=== PATIENT | male | born 1955 | race Caucasian/White ===

== ENCOUNTER 2019-09-05 07:03 | Inpatient (IN) | payer BC ==
[2019-09-04 16:57] LABS: BASOPHILS # (AUTO) 0.1 X10'3 (0-0.2); BASOPHILS % (AUTO) 0.7 % (0-1); EOSINOPHILS # (AUTO) 0.1 X10'3 (0-0.9); HEMATOCRIT 44.4 % (42.0-52.0); HEMOGLOBIN 14.9 g/dl (14.0-17.9); LYMPHOCYTES # (AUTO) 3.1 X10'3 (1.1-4.8); MEAN CORPUSCULAR HEMOGLOBIN 29.5 PG (27.0-31.0); MEAN CORPUSCULAR HGB CONC 33.5 g/dL (33.0-36.5); MEAN PLATELET VOLUME 8.2 FL (7.4-10.4); MONOCYTES # (AUTO) 0.7 X10'3 (0-0.9); MONOCYTES % (AUTO) 7.4 % (2-12); NEUTROPHILS % (AUTO) 55.9 % (42-75); PLATELET COUNT 307 X10'3 (140-440); RED BLOOD COUNT 5.04 X10'6 (4.70-6.10); RED CELL DISTRIBUTION WIDTH 14.8 % (11.5-14.5); WHITE BLOOD COUNT 8.9 X10'3 (4.5-11.0)
[2019-09-04 17:08] LABS: ALBUMIN 4.1 G/DL (3.4-5.0); ANION GAP 9 (8-16); BLOOD UREA NITROGEN 20 MG/DL (7-18); BUN/CREATININE RATIO 24.4 (5.4-32.0); CALCIUM 9.2 MG/DL (8.5-10.1); CHLORIDE 102 MMOL/L (99-107); CREATININE 0.82 MG/DL (0.60-1.10); GLUCOSE 127 MG/DL (70-104); POTASSIUM 4.3 MMOL/L (3.5-5.1); SODIUM 138 MMOL/L (135-145); TOTAL CARBON DIOXIDE 26.7 MMOL/L (24-32); eGFR > 90 ML/MIN
[2019-09-04 18:10] LABS: PARTIAL THROMBOPLASTIN TIME 30 SECONDS (22-32)
[2019-09-05] VITALS (12 sets, daily range): BP systolic 99–134; BP diastolic 65–78
[~2019-09-05] VITALS: Ht 182.9 cm; Wt 93.2 kg
[2019-09-05] MEDS ORDERED: LORazepam 0.5 MG tablet PO PRN (07:20)
[2019-09-05] MEDS ORDERED: diphenhydrAMINE 25mg capsule PO PRN (07:20)
[2019-09-05] MEDS ORDERED: TRAZ-251 PO (08:32)
[2019-09-05] MEDS ORDERED: LEVO75TA PO (08:32)
[2019-09-05] MEDS ORDERED: CHOL500050 PO (08:32)
[2019-09-05] MEDS ORDERED: EVOL140P SUBCUT (08:32)
[2019-09-05] MEDS ORDERED: ASPI-1265 PO (08:32)
[2019-09-05] MEDS ORDERED: SITA1TAB6 PO (08:32)
[2019-09-05] MEDS ORDERED: PIOG15TA8 PO (08:32)
[2019-09-05] MEDS ORDERED: HYDR-4353 PO (08:32)
[2019-09-05] MEDS ORDERED: LISI-600 PO (08:32)
[2019-09-05] MEDS ORDERED: LIDOcaine/PRILOcaine 5gm cream TP ONE (08:35)
[2019-09-05] MEDS ORDERED: midazolam 2 mg/2 ml injection ONE ×2 (09:49→10:17)
[2019-09-05] MEDS ORDERED: verapamil 2.5 mg/ml inj IV ONE (09:49)
[2019-09-05] MEDS ORDERED: nitroGLYCERIN-Tridil 50MG/D5W 250 ML IV ONE (09:49)
[2019-09-05] MEDS ORDERED: fentaNYL/PF 50MCG/1 ML 2ML syringe ONE (09:50)
[2019-09-05] MEDS ORDERED: LIDOcaine 1% 30ml preserv. free vial ONE (09:50)
[2019-09-05] MEDS ORDERED: heparin 1,000unit/ml 10ml vial 10 ML ONE (09:50)
[2019-09-05] MEDS ORDERED: iohexol 350MG/ML 100ml bottle IV ONE (09:50)
[2019-09-05] MEDS ORDERED: iohexol 350 MG/ML 50ML vial IV ONE (09:50)
[2019-09-05] MEDS ORDERED: iohexol 350 MG/1 ML 200ml bottle ONE (10:20)
[2019-09-05] MEDS: normal saline 1000ml 1,000 ML IV SCH ×3 (11:10→21:07)
[2019-09-05] MEDS ORDERED: OXAZEpam 15mg capsule PO PRN (11:55)
[2019-09-05] MEDS ORDERED: dextrose ORAL solution 15 GM/59 ML bottle PO PRN ×2 (12:10)
[2019-09-05] MEDS ORDERED: dextrose 50%-water 50ml dispensing syringe IV PRN ×2 (12:10)
[2019-09-05] MEDS ORDERED: MESSAGE TO PHARMACY PO ONE (12:10)
[2019-09-05] MEDS ORDERED: insulin Lispro (HumaLOG) vial - multi-dose SQ SCH (12:10)
[2019-09-05] MEDS ORDERED: glucagon, human recombinant 1mg kit SUBCUT PRN (12:10)
--- NOTE | 2019-09-05 14:10 | NUR ---
Problems reprioritized. Patient report given, questions answered & plan of care reviewed with Avani RN, I will be taking pt to rm#[id number] shortly.
--- NOTE | 2019-09-05 15:00 | NUR ---
VSS, pt is in stable condition, pt is in rm#[id number], pt's R hand radial site dsg CDI, introduced pt to RN, Avani, pt is in no distress at this time.
[2019-09-05 15:50] LABS: HEMOGLOBIN A1C 6.6 % (4.5-6.2)
[2019-09-05] MEDS: HYDROcodone/acetaminophen 10/325mg tab PO PRN ×2 (16:13→22:40)
--- NOTE | 2019-09-05 18:48 | NUR ---
Problems reprioritized. Patient report given, questions answered & plan of care reviewed with BENNIE Olson. Patient transferred to ACCE unit via wheelchair, able to transfer self to bed, no acute distress, stable at shift change.
[2019-09-05] MEDS ORDERED: traZODone 50mg tablet PO SCH (21:00)
[2019-09-05] MEDS ORDERED: insulin glargine (Lantus) pen - multi-dose SQ SCH (21:00)
--- NOTE | 2019-09-05 22:52 | NUR ---
ADMIT ORDER AND CODE STATUS PUT IN UNDER WRITTEN ORDERS IN PAPER CHART FROM DR. HAQUE.
[2019-09-06] VITALS (10 sets, daily range): BP systolic 113–144; BP diastolic 60–85
[2019-09-06] MEDS: normal saline 1000ml 1,000 ML IV SCH ×4 (02:43→15:15)
[2019-09-06 04:56] LABS: ALBUMIN 3.1 G/DL (3.4-5.0); ANION GAP 12 (8-16); BLOOD UREA NITROGEN 16 MG/DL (7-18); BUN/CREATININE RATIO 20.3 (5.4-32.0); CALCIUM 8.1 MG/DL (8.5-10.1); CHLORIDE 109 MMOL/L (99-107); CREATININE 0.79 MG/DL (0.60-1.10); GLUCOSE 106 MG/DL (70-104); SODIUM 145 MMOL/L (135-145); TOTAL CARBON DIOXIDE 24.5 MMOL/L (24-32); eGFR > 90 ML/MIN
[2019-09-06 05:01] LABS: BASOPHILS % (AUTO) 0.4 % (0-1); EOSINOPHILS # (AUTO) 0.2 X10'3 (0-0.9); EOSINOPHILS % (AUTO) 2.5 % (0-6); HEMOGLOBIN 13.5 g/dl (14.0-17.9); LYMPHOCYTES # (AUTO) 3.7 X10'3 (1.1-4.8); LYMPHOCYTES % (AUTO) 48.1 % (21-51); MEAN CORPUSCULAR HEMOGLOBIN 29.6 PG (27.0-31.0); MEAN CORPUSCULAR HGB CONC 33.8 g/dL (33.0-36.5); MEAN CORPUSCULAR VOLUME 87.6 FL (78-98); MEAN PLATELET VOLUME 8.1 FL (7.4-10.4); MONOCYTES # (AUTO) 0.5 X10'3 (0-0.9); MONOCYTES % (AUTO) 6.8 % (2-12); NEUTROPHILS # (AUTO) 3.2 X10'3 (1.8-7.7); NEUTROPHILS % (AUTO) 42.2 % (42-75); PLATELET COUNT 250 X10'3 (140-440); RED BLOOD COUNT 4.57 X10'6 (4.70-6.10); RED CELL DISTRIBUTION WIDTH 14.1 % (11.5-14.5); WHITE BLOOD COUNT 7.6 X10'3 (4.5-11.0)
--- NOTE | 2019-09-06 06:10 | NUR ---
Patient in room MED 310. I have received report from BENNIE Longoria and had the opportunity to ask questions and assume patient care.
--- NOTE | 2019-09-06 06:25 | NUR ---
Problems reprioritized. Patient report given, Amelia AVERY questions answered & plan of care reviewed with .Bedside report completed. pt resting quielty, no distress noted.
[2019-09-06] MEDS ORDERED: levoTHYROXINE 75mcg tablet PO SCH (07:00)
--- NOTE | 2019-09-06 07:39 | NUR ---
Patient blood sugar 139, NPO. Patient refuses the correctional dose of 1 unit of insulin. Controls at home with diet and oral medications.
[2019-09-06] MEDS ORDERED: vitamin D (cholecalciferol) 1,000 unit tablet PO SCH (08:00)
[2019-09-06] MEDS ORDERED: lisinopril 10 MG tablet PO SCH (08:00)
[2019-09-06] MEDS ORDERED: pioglitazone 15mg tablet PO SCH (08:00)
[2019-09-06] MEDS ORDERED: aspirin 81mg tab.chew PO SCH (08:00)
[2019-09-06 08:46] LABS: MAGNESIUM 1.8 MG/DL (1.5-2.4); PHOSPHORUS 3.2 MG/DL (2.3-4.5)
[2019-09-06] MEDS ORDERED: LIDOcaine/PRILOcaine 5gm cream TP ONE (09:55)
[2019-09-06] MEDS ORDERED: SITA1TBM4 PO (10:00)
[2019-09-06] MEDS ORDERED: verapamil 2.5 mg/ml inj IV ONE (10:33)
[2019-09-06] MEDS ORDERED: fentaNYL/PF 50MCG/1 ML 2ML syringe ONE (10:33)
[2019-09-06] MEDS ORDERED: midazolam 2 mg/2 ml injection ONE ×2 (10:33→11:48)
[2019-09-06] MEDS ORDERED: nitroGLYCERIN-Tridil 50MG/D5W 250 ML IV ONE (10:33)
[2019-09-06] MEDS ORDERED: LIDOcaine 1% (10mg/ml)w/preservative injection 20ml MDV ONE (10:33)
[2019-09-06] MEDS ORDERED: iohexol 350 MG/1 ML 200ml bottle ONE ×2 (10:34→12:11)
[2019-09-06] MEDS ORDERED: heparin 1,000unit/ml 10ml vial 10 ML ONE ×2 (10:34→13:04)
--- NOTE | 2019-09-06 10:51 | NUR ---
Patient has been transported to [facility] for procedure by BENNIE Suresh from [facility].
[2019-09-06] MEDS ORDERED: heparin 25,000 UNIT/250ml bag 250 ML IV ONE (11:17)
[2019-09-06] MEDS ORDERED: HYDROmorphone 1 mg/ml syringe ONE (11:40)
[2019-09-06] MEDS ORDERED: heparin 1,000 UNITS/NS 500ml 500 ML ONE (12:12)
[2019-09-06] MEDS ORDERED: clopidogrel 300mg tablet ONE (13:13)
--- NOTE | 2019-09-06 13:22 | NUR ---
received report from Unruly,cath lab radiological technologist RN
[2019-09-06] MEDS ORDERED: magnesium hydroxide 30ml (MOM) UD suspension PO PRN (14:10)
[2019-09-06] MEDS ORDERED: cyclobenzaprine 10mg tablet PO PRN (14:10)
[2019-09-06] MEDS ORDERED: acetaminophen 325mg tablet PO PRN (14:10)
[2019-09-06] MEDS ORDERED: HYDROcodone/acetaminophen 10/325mg tab PO PRN ×2 (14:10)
[2019-09-06] MEDS ORDERED: DAPA10TA PO (15:24)
[2019-09-06] MEDS ORDERED: CLOP75TA35 PO (17:28)
[2019-09-06] MEDS ORDERED: ASPI-1265 PO (17:28)
--- NOTE | 2019-09-06 18:01 | NUR ---
Problems reprioritized. Patient report given, questions answered & plan of care reviewed with BENNIE Domínguez.
--- NOTE | 2019-09-06 18:53 | NUR ---
Patient in room MED 310. I have received report from Glory AVERY and had the opportunity to ask questions and assume patient care.
[2019-09-06] MEDS ORDERED: docusate sod 100mg capsule PO SCH (20:00)
--- NOTE | 2019-09-06 20:15 | NUR ---
RN provided patient teaching to patient and spouse on post cath care, DM survival skills, and cardiovascular disease progress. RN also provided education on medications, and diabetic appropriate diet. Pt and spouse's questions were answered. Pt were instructed to picker and sorter load and unload Rx from [facility] on [address] instead of [facility] since [facility] has longer pharmacy hours. Pt D/C on 09/06 at 20:15 with , ambulate by self, gait normal, all personal belongings were taken from room.
[2019-09-07] MEDS ORDERED: aspirin 81mg tab.chew PO ONE (08:00)
[2019-09-07] MEDS ORDERED: clopidogrel 75mg tablet PO SCH (08:00)
[2019-09-07] MEDS ORDERED: aspirin 325mg tablet PO SCH (08:00)
== END 2019-09-06 20:15 | disposition home or self-care (01) | DRG 247 ==
LOC: SSTAY O 07:03 → PCU 3S 15:09 → SSTAY O 19:33 → MED 3N 19:34
PROVIDERS: ADMIT Internal Medicine Cardiovascular Disease; ATTEND Internal Medicine Cardiovascular Disease
PROC: 4A023N7 Measurement of Cardiac Sampling and Pressure, Left Heart, Percutaneous Approach (ICD-10-PCS; principal; 2019-09-05)
PROC: B2111ZZ Fluoroscopy of Multiple Coronary Arteries using Low Osmolar Contrast (ICD-10-PCS; 2019-09-05)
PROC: B2151ZZ Fluoroscopy of Left Heart using Low Osmolar Contrast (ICD-10-PCS; 2019-09-05)
PROC: 027236Z Dilation of Coronary Artery, Three Arteries with Three Drug-eluting Intraluminal Devices, Percutaneous Approach (ICD-10-PCS; 2019-09-06)
PROC: 02JA3ZZ Inspection of Heart, Percutaneous Approach (ICD-10-PCS; 2019-09-06)
DX: I25.119 Atherosclerotic heart disease of native coronary artery with unspecified angina pectoris (principal); E11.9 Type 2 diabetes mellitus without complications; I10 Essential (primary) hypertension; E78.5 Hyperlipidemia, unspecified; E66.9 Obesity, unspecified; Z68.27 Body mass index [BMI] 27.0-27.9, adult
CPT/HCPCS: 36415; 80048; 82948; 83036; 83735; 84100; 84443; 85025; 85347; 85610; 85730; 87081; 93005; 93458; 99152; 99153; A4620; C1725; C1769; C1874; C1894; C9600; C9601; C9607; G0378; J1170; J1644; J1815; J2001; J2250; J3010; J3490; J7030; Q0163; Q9967

== ENCOUNTER 2021-11-29 10:01 | Inpatient (IN) | payer OTHER, SELFPAY ==
[~2021-11-29] VITALS: Ht 182.9 cm; Wt 81.0 kg
[~2021-11-29 10:01] MED LIST: ASPI-1265 PO; CHOL500050 PO; CLOP75TA34 PO; DAPA10TA PO; EVOL140P3 SUBCUT; HYDR-4353 PO; LEVO75TA PO; LISI20TA28 PO; PIOG15TA8 PO; SITA1TBM4 PO; TRAZ-251 PO
[2021-11-29 11:31] LABS: ALANINE AMINOTRANSFERASE 26 U/L (12-78); ALBUMIN 2.9 G/DL (3.4-5.0); ALBUMIN/GLOBULIN RATIO 0.6 (1.1-1.5); ALKALINE PHOSPHATASE 65 IU/L (46-116); ANION GAP 18 (8-16); ASPARTATE AMINO TRANSFERASE 14 U/L (10-37); BILIRUBIN,TOTAL 0.7 MG/DL (0.1-1.0); BLOOD UREA NITROGEN 52 MG/DL (7-18); BUN/CREATININE RATIO 47.7 (5.4-32.0); CALCIUM 9.6 MG/DL (8.5-10.1); CHLORIDE 97 MMOL/L (99-107); CREATININE 1.09 MG/DL (0.60-1.10); GLUCOSE 299 MG/DL (70-104); MAGNESIUM 2.9 MG/DL (1.5-2.4); POTASSIUM 4.4 MMOL/L (3.5-5.1); SODIUM 132 MMOL/L (135-145); TOTAL CARBON DIOXIDE 16.6 MMOL/L (24-32); TOTAL PROTEIN 7.6 G/DL (6.4-8.2); eGFR 68 ML/MIN
[2021-11-29 11:35] LABS: D-DIMER 0.24 MG/L FEU (0-0.50)
[2021-11-29 11:40] LABS: BASOPHILS % (AUTO) 0.1 % (0-1); EOSINOPHILS % (AUTO) 0 % (0-6); HEMATOCRIT 46.4 % (42.0-52.0); HEMOGLOBIN 15.6 g/dl (14.0-17.9); LYMPHOCYTES % (AUTO) 6.6 % (21-51); MEAN CORPUSCULAR HEMOGLOBIN 29.8 PG (27.0-31.0); MEAN CORPUSCULAR HGB CONC 33.7 g/dL (33.0-36.5); MEAN CORPUSCULAR VOLUME 88.3 FL (78-98); MEAN PLATELET VOLUME 8.3 FL (7.4-10.4); MONOCYTES # (AUTO) 1.3 X10'3 (0-0.9); MONOCYTES % (AUTO) 8.5 % (2-12); NEUTROPHILS # (AUTO) 13.3 X10'3 (1.8-7.7); NEUTROPHILS % (AUTO) 84.8 % (42-75); PLATELET COUNT 477 X10'3 (140-440); RED BLOOD COUNT 5.25 X10'6 (4.70-6.10); RED CELL DISTRIBUTION WIDTH 14.6 % (11.5-14.5); WHITE BLOOD COUNT 15.7 X10'3 (4.5-11.0)
[2021-11-29] MEDS ORDERED: REMDESIVIR INJ 200 MG in normal saline 100ml IV soln 60 ML IV ONE (12:10)
[2021-11-29] MEDS ORDERED: dexamethasone inj 8 MG in dextrose 5%-water 100 ML IV SCH (12:12)
[2021-11-29] MEDS ORDERED: potassium Cl 20 mEq SR tablet PO PRN ×2 (12:40)
[2021-11-29] MEDS ORDERED: PERFLUTREN PROTEIN-A MICROSPHR (Optison) 0.22 MG/ML 3ML VIAL IV ONE (12:40)
[2021-11-29] MEDS ORDERED: magnesium 4gm in 100ml NS 100 ML IV PRN (12:40)
[2021-11-29] MEDS ORDERED: ondansetron 4mg rapidly disintigrating tab PO PRN (12:40)
[2021-11-29] MEDS ORDERED: magnesium Cl slow-release 64mg tablet PO PRN (12:40)
[2021-11-29] MEDS ORDERED: mag hydrox/Alum hydrox/simeth 30ml oral suspension PO PRN (12:40)
[2021-11-29] MEDS ORDERED: magnesium 2GM in 50ml NS 50 ML IV PRN (12:40)
[2021-11-29] MEDS ORDERED: HYDROcodone/acetaminophen 5mg/325mg tablet PO PRN (12:40)
[2021-11-29] MEDS ORDERED: acetaminophen 325mg tablet PO PRN (12:40)
[2021-11-29] MEDS ORDERED: dextrose ORAL solution 15 GM/59 ML bottle PO PRN ×2 (12:40)
[2021-11-29] MEDS ORDERED: bisacodyl 10mg suppository rectal RC PRN (12:40)
[2021-11-29] MEDS ORDERED: glucagon, human recombinant 1mg kit SUBCUT PRN (12:40)
[2021-11-29] MEDS ORDERED: ALBUTEROL INHALER 1 PUFF/90 MCG INHALER IH PRN (12:40)
[2021-11-29] MEDS ORDERED: MESSAGE TO PHARMACY PO ONE (12:40)
[2021-11-29] MEDS ORDERED: ondansetron/PF 4mg/2ml inj IV PRN (12:40)
[2021-11-29] MEDS ORDERED: acetaminophen 650mg rectal suppository RC PRN (12:40)
[2021-11-29] MEDS ORDERED: magnesium hydroxide 30ml (MOM) UD suspension PO PRN (12:40)
[2021-11-29] MEDS ORDERED: HYDROcodone/acetaminophen 10/325mg tab PO PRN (12:40)
[2021-11-29] MEDS ORDERED: potassium CL 10mEq/100ml bag 100 ML IV PRN (12:40)
[2021-11-29] MEDS ORDERED: dextrose 50%-water 50ml dispensing syringe IV PRN ×2 (12:40)
[2021-11-29] MEDS ORDERED: iohexol 350MG/ML 100ml bottle IV ONE (12:54)
[2021-11-29] MEDS ORDERED: CLOP75TA33 PO (13:00)
[2021-11-29] MEDS ORDERED: LEVO75TA7 PO (13:00)
[2021-11-29] MEDS ORDERED: METF-438 PO (13:00)
[2021-11-29] MEDS ORDERED: TIZA-205 PO (13:00)
[2021-11-29] MEDS ORDERED: EZET10TA48 PO (13:00)
[2021-11-29] MEDS ORDERED: GABA-530 PO (13:00)
[2021-11-29] MEDS ORDERED: LISI10TA27 PO (13:00)
[2021-11-29] MEDS ORDERED: PIOG30TA71 PO (13:00)
[2021-11-29] MEDS ORDERED: REMDESIVIR 200 MG in NS 100ml IVPB Loading dose IV ONE (13:45)
[2021-11-29 14:47] LABS: HEMOGLOBIN A1C 7.6 % (4.5-6.2)
[2021-11-29] MEDS: normal saline 1000ml 1,000 ML IV SCH ×2 (14:57→22:40)
[2021-11-29 15:20] LABS: FERRITIN 3315 NG/ML (26-388); LACTATE DEHYDROGENASE 336 U/L (85-227)
[2021-11-29] MEDS: ALBUTEROL INHALER 1 PUFF/90 MCG INHALER IH SCH ×2 (16:41→21:44)
--- NOTE | 2021-11-29 17:00 | NUR ---
PT MOVED ONTO A HOSPITAL BED. STATES HE MAY WANT TO LEAVE AMA AND GO HOME. INFORMED HE IS CURRENTLY ON 5L OXYGEN TO MAINTAIN HIS OXYGEN LEVEL TO A NORMAL RANGE. PT STATES HE KNOWS BUT MIGHT WANT TO GO HOME IF WE DONT DO ANY MORE TESTS. STATES CHECK WITH HIM LATER
--- NOTE | 2021-11-29 19:53 | NUR ---
PT NS WAS REINITIATED AND EDUCATED ON KEEPING ARM STRAIGHT FOR IV INFUSION TO BE SUCCESSFUL.
[2021-11-29] MEDS: docusate sod 100mg capsule PO SCH (20:00)
[2021-11-29] MEDS: K and/or MAG REPLACEMENT MC SCH (20:00)
[2021-11-29] MEDS: enoxaparin 40mg/0.4ml syringe SUBCUT SCH (20:19)
[2021-11-29] MEDS: dexamethasone inj 6 MG in dextrose 5%-water 100 ML IV SCH (20:19)
[2021-11-29] MEDS: tizanidine 4mg tablet PO SCH (20:20)
[2021-11-29] MEDS: traZODone 50mg tablet PO SCH (20:20)
[2021-11-29] MEDS: gabapentin 100mg capsule PO SCH (20:20)
[2021-11-29] MEDS: insulin glargine (Lantus) pen - multi-dose SQ SCH (21:00)
[2021-11-29 21:32] LABS: CLARITY,URINE CLEAR (Clear); COLOR,URINE YELLOW (Yellow); GLUCOSE, URINE >=1000 mg/dl (Neg); KETONES,URINE 40 mg/dl (Neg); LEUKOCYTE ESTERASE ,URINE NEGATIVE (Neg); NITRITES, URINE NEGATIVE (Neg); OCCULT BLOOD,URINE NEGATIVE (Neg); PROTEIN,URINE NEGATIVE (Neg); UROBILINOGEN,URINE 0.2 E.U/dL (0.2-1.0)
[2021-11-29 21:46] LABS: UA COLLECTION TYPE STRAIGHT CATH
[2021-11-29 21:48] LABS: BACTERIA,URINE NONE SEEN /HPF (Neg); RBC,URINE NONE SEEN /HPF (0-2); SQUAMOUS EPITHELIAL CELL,UR FEW /LPF (FEW); WBC,URINE NONE SEEN /HPF (0-4)
[2021-11-30] MEDS: ALBUTEROL INHALER 1 PUFF/90 MCG INHALER IH SCH ×4 (02:00→22:00)
--- NOTE | 2021-11-30 02:00 | NUR ---
PAGED RESPIRATORY FOR PT EXHIBITING DECREASED OXYGENATION--SATING AT 87 ON 5L NC.
[2021-11-30] MEDS: pioglitazone 15mg tablet PO SCH (08:00)
[2021-11-30] MEDS ORDERED: PIOGLITAZONE HCL PO SCH (08:00)
[2021-11-30] MEDS: K and/or MAG REPLACEMENT MC SCH ×2 (09:00→20:00)
[2021-11-30] MEDS: REMDESIVIR INJ 100 MG in normal saline 100ml IV soln 100 ML IV SCH (09:05)
[2021-11-30] MEDS: gabapentin 100mg capsule PO SCH ×3 (09:16→22:23)
[2021-11-30] MEDS: lisinopril 10 MG tablet PO SCH (09:17)
[2021-11-30] MEDS: ezetimibe 10mg tablet PO SCH (09:19)
[2021-11-30] MEDS: clopidogrel 75mg tablet PO SCH (09:19)
[2021-11-30] MEDS: docusate sod 100mg capsule PO SCH ×2 (09:20→20:00)
[2021-11-30] MEDS: levoTHYROXINE 75mcg tablet PO SCH (09:20)
[2021-11-30] MEDS: enoxaparin 40mg/0.4ml syringe SUBCUT SCH ×2 (09:21→22:23)
[2021-11-30] MEDS: normal saline 1000ml 1,000 ML IV SCH ×2 (09:24→22:21)
[2021-11-30] MEDS: DAPAGLIFLOZIN 10MG TABLET PO SCH (09:28)
[2021-11-30 09:42] LABS: BASOPHILS % (AUTO) 0.4 % (0-1); EOSINOPHILS % (AUTO) 0 % (0-6); HEMOGLOBIN 14.7 g/dl (14.0-17.9); LYMPHOCYTES # (AUTO) 1.3 X10'3 (1.1-4.8); MEAN CORPUSCULAR HEMOGLOBIN 29.7 PG (27.0-31.0); MEAN CORPUSCULAR HGB CONC 33.5 g/dL (33.0-36.5); MEAN CORPUSCULAR VOLUME 88.7 FL (78-98); MEAN PLATELET VOLUME 8.2 FL (7.4-10.4); MONOCYTES # (AUTO) 1.2 X10'3 (0-0.9); NEUTROPHILS # (AUTO) 9.2 X10'3 (1.8-7.7); NEUTROPHILS % (AUTO) 78.6 % (42-75); PLATELET COUNT 404 X10'3 (140-440); RED BLOOD COUNT 4.96 X10'6 (4.70-6.10); RED CELL DISTRIBUTION WIDTH 14.7 % (11.5-14.5); WHITE BLOOD COUNT 11.6 X10'3 (4.5-11.0)
[2021-11-30 09:50] LABS: D-DIMER < 0.19 MG/L FEU (0-0.50)
[2021-11-30] MEDS: dexamethasone inj 6 MG in dextrose 5%-water 100 ML IV SCH ×2 (09:50→22:21)
[2021-11-30 09:57] LABS: ALANINE AMINOTRANSFERASE 20 U/L (12-78); ALBUMIN 2.4 G/DL (3.4-5.0); ALBUMIN/GLOBULIN RATIO 0.6 (1.1-1.5); ALKALINE PHOSPHATASE 56 IU/L (46-116); ANION GAP 18 (8-16); ASPARTATE AMINO TRANSFERASE 15 U/L (10-37); BILIRUBIN,TOTAL 0.5 MG/DL (0.1-1.0); BLOOD UREA NITROGEN 57 MG/DL (7-18); BUN/CREATININE RATIO 63.3 (5.4-32.0); C-REACTIVE PROTEIN 3.37 MG/DL (0.0-0.5); CALCIUM 8.4 MG/DL (8.5-10.1); CHLORIDE 102 MMOL/L (99-107); CHOL/HDL RATIO 6.6 (0.00-4.99); CHOLESTEROL 206 MG/DL (0-200); GLUCOSE 251 MG/DL (70-104); HDL CHOLESTEROL 31 MG/DL (35-60); LACTATE DEHYDROGENASE 186 U/L (85-227); LDL CHOLESTEROL 114 MG/DL (50-100); MAGNESIUM 2.9 MG/DL (1.5-2.4); POTASSIUM 4.6 MMOL/L (3.5-5.1); SODIUM 137 MMOL/L (135-145); TOTAL CARBON DIOXIDE 17.2 MMOL/L (24-32); TOTAL PROTEIN 6.7 G/DL (6.4-8.2); TRIGLYCERIDES 404 MG/DL (20-135); eGFR 85 ML/MIN
[2021-11-30] MEDS: insulin Lispro (HumaLOG) vial - multi-dose SQ SCH ×4 (10:35→22:31)
[2021-11-30] MEDS ORDERED: temazepam 15mg capsule PO PRN (14:45)
[2021-11-30 20:30] VITALS: BP 118/59
[2021-11-30] MEDS: tizanidine 4mg tablet PO SCH (22:23)
[2021-11-30] MEDS: traZODone 50mg tablet PO SCH (22:23)
[2021-11-30] MEDS: temazepam 15mg capsule PO PRN (22:24)
[2021-11-30] MEDS: insulin glargine (Lantus) pen - multi-dose SQ SCH (22:30)
[2021-12-01 02:00] VITALS: BP 100/60
[2021-12-01] MEDS: ALBUTEROL INHALER 1 PUFF/90 MCG INHALER IH SCH ×5 (03:07→20:00)
[2021-12-01] MEDS: normal saline 1000ml 1,000 ML IV SCH ×2 (04:40→21:47)
[2021-12-01 06:00] VITALS: BP 111/66
--- NOTE | 2021-12-01 06:05 | NUR ---
received report from mariia mirza
[2021-12-01] MEDS ORDERED: REMDESIVIR INJ 100 MG in normal saline 100ml IV soln 80 ML IV SCH (08:00)
[2021-12-01] MEDS: K and/or MAG REPLACEMENT MC SCH ×2 (08:00→20:00)
[2021-12-01] MEDS: clopidogrel 75mg tablet PO SCH (08:09)
[2021-12-01] MEDS: levoTHYROXINE 75mcg tablet PO SCH (08:09)
[2021-12-01] MEDS: gabapentin 100mg capsule PO SCH ×3 (08:09→21:01)
[2021-12-01] MEDS: lisinopril 10 MG tablet PO SCH (08:09)
[2021-12-01] MEDS: ezetimibe 10mg tablet PO SCH (08:10)
[2021-12-01] MEDS: docusate sod 100mg capsule PO SCH ×2 (08:10→21:01)
[2021-12-01] MEDS: DAPAGLIFLOZIN 10MG TABLET PO SCH (08:10)
[2021-12-01] MEDS: pioglitazone 15mg tablet PO SCH (08:10)
[2021-12-01] MEDS: dexamethasone inj 6 MG in dextrose 5%-water 100 ML IV SCH ×2 (08:11→20:59)
[2021-12-01] MEDS: enoxaparin 40mg/0.4ml syringe SUBCUT SCH ×2 (08:14→21:03)
[2021-12-01 08:16] LABS: BASOPHILS % (AUTO) 0.5 % (0-1); EOSINOPHILS % (AUTO) 0 % (0-6); HEMATOCRIT 43.3 % (42.0-52.0); HEMOGLOBIN 14.7 g/dl (14.0-17.9); LYMPHOCYTES % (AUTO) 9.6 % (21-51); MEAN CORPUSCULAR HEMOGLOBIN 29.8 PG (27.0-31.0); MEAN CORPUSCULAR HGB CONC 33.8 g/dL (33.0-36.5); MEAN CORPUSCULAR VOLUME 88.2 FL (78-98); MEAN PLATELET VOLUME 8.3 FL (7.4-10.4); MONOCYTES # (AUTO) 0.8 X10'3 (0-0.9); MONOCYTES % (AUTO) 7.9 % (2-12); NEUTROPHILS # (AUTO) 8.3 X10'3 (1.8-7.7); PLATELET COUNT 367 X10'3 (140-440); RED BLOOD COUNT 4.91 X10'6 (4.70-6.10); RED CELL DISTRIBUTION WIDTH 14.6 % (11.5-14.5); WHITE BLOOD COUNT 10.1 X10'3 (4.5-11.0)
--- NOTE | 2021-12-01 08:23 | NUR ---
scanner on computer not scanning meds into [facility] at this time Addendum: 12/01/21 at 0823 by Marlena Webber RN checked all meds prior to admin
[2021-12-01 08:35] LABS: ALANINE AMINOTRANSFERASE 20 U/L (12-78); ALBUMIN 2.4 G/DL (3.4-5.0); ALBUMIN/GLOBULIN RATIO 0.6 (1.1-1.5); ALKALINE PHOSPHATASE 54 IU/L (46-116); ANION GAP 16 (8-16); ASPARTATE AMINO TRANSFERASE 13 U/L (10-37); BILIRUBIN,TOTAL 0.5 MG/DL (0.1-1.0); BLOOD UREA NITROGEN 45 MG/DL (7-18); BUN/CREATININE RATIO 59.2 (5.4-32.0); C-REACTIVE PROTEIN 1.91 MG/DL (0.0-0.5); CALCIUM 8.6 MG/DL (8.5-10.1); CHLORIDE 104 MMOL/L (99-107); CREATININE 0.76 MG/DL (0.60-1.10); GLUCOSE 209 MG/DL (70-104); LACTATE DEHYDROGENASE 213 U/L (85-227); MAGNESIUM 2.6 MG/DL (1.5-2.4); POTASSIUM 4.7 MMOL/L (3.5-5.1); SODIUM 138 MMOL/L (135-145); TOTAL CARBON DIOXIDE 18.5 MMOL/L (24-32); TOTAL PROTEIN 6.2 G/DL (6.4-8.2); eGFR > 90 ML/MIN
[2021-12-01] MEDS: insulin Lispro (HumaLOG) vial - multi-dose SQ SCH ×4 (08:50→20:56)
[2021-12-01] MEDS: REMDESIVIR INJ 100 MG in normal saline 100ml IV soln 100 ML IV SCH (08:54)
[2021-12-01 08:59] LABS: D-DIMER 0.23 MG/L FEU (0-0.50)
[2021-12-01 10:00] VITALS: BP 129/64
--- NOTE | 2021-12-01 12:30 | NUR ---
ADMIN AND EDUCATED PT ON USING HIS IS
--- NOTE | 2021-12-01 14:30 | NUR ---
DM Consult: Pt admit DX COVID-19 hx T2DM A1C 7.6 takes metformin at home per EMR. RD attempted to contact pt via TC but not successful. Written DM ed w/ RD contact information mailed to home address provided in EMR. Addendum: 12/01/21 at [address] Amended: Links added.
[2021-12-01 18:00] VITALS: BP 109/54
--- NOTE | 2021-12-01 18:04 | NUR ---
GAVE REPORT TO BENNIE CALDERA
[2021-12-01] MEDS: insulin glargine (Lantus) pen - multi-dose SQ SCH (20:54)
[2021-12-01] MEDS: temazepam 15mg capsule PO PRN (21:01)
[2021-12-01] MEDS: tizanidine 4mg tablet PO SCH (21:01)
[2021-12-01] MEDS: traZODone 50mg tablet PO SCH (21:01)
[2021-12-01 22:00] VITALS: BP 103/56
[2021-12-02 02:00] VITALS: BP 95/58
[2021-12-02] MEDS: ALBUTEROL INHALER 1 PUFF/90 MCG INHALER IH SCH ×4 (02:00→20:31)
--- NOTE | 2021-12-02 06:05 | NUR ---
received report from mariia morales
--- NOTE | 2021-12-02 06:50 | NUR ---
Problems reprioritized. Patient report given, questions answered & plan of care reviewed with mariia Johansen.
[2021-12-02 07:18] LABS: BASOPHILS % (AUTO) 0.1 % (0-1); EOSINOPHILS % (AUTO) 0 % (0-6); HEMATOCRIT 38.5 % (42.0-52.0); HEMOGLOBIN 13.2 g/dl (14.0-17.9); LYMPHOCYTES # (AUTO) 0.9 X10'3 (1.1-4.8); LYMPHOCYTES % (AUTO) 10.6 % (21-51); MEAN CORPUSCULAR HGB CONC 34.3 g/dL (33.0-36.5); MEAN CORPUSCULAR VOLUME 87.4 FL (78-98); MEAN PLATELET VOLUME 7.8 FL (7.4-10.4); MONOCYTES # (AUTO) 0.7 X10'3 (0-0.9); MONOCYTES % (AUTO) 7.7 % (2-12); NEUTROPHILS # (AUTO) 7.2 X10'3 (1.8-7.7); NEUTROPHILS % (AUTO) 81.6 % (42-75); PLATELET COUNT 336 X10'3 (140-440); RED BLOOD COUNT 4.41 X10'6 (4.70-6.10); RED CELL DISTRIBUTION WIDTH 14.7 % (11.5-14.5); WHITE BLOOD COUNT 8.9 X10'3 (4.5-11.0)
[2021-12-02 07:42] LABS: ALANINE AMINOTRANSFERASE 24 U/L (12-78); ALBUMIN 2.1 G/DL (3.4-5.0); ALBUMIN/GLOBULIN RATIO 0.6 (1.1-1.5); ALKALINE PHOSPHATASE 46 IU/L (46-116); ANION GAP 10 (8-16); ASPARTATE AMINO TRANSFERASE 19 U/L (10-37); BILIRUBIN,TOTAL 0.3 MG/DL (0.1-1.0); BLOOD UREA NITROGEN 35 MG/DL (7-18); BUN/CREATININE RATIO 58.3 (5.4-32.0); C-REACTIVE PROTEIN 0.86 MG/DL (0.0-0.5); CALCIUM 7.8 MG/DL (8.5-10.1); CHLORIDE 107 MMOL/L (99-107); GLUCOSE 177 MG/DL (70-104); LACTATE DEHYDROGENASE 167 U/L (85-227); MAGNESIUM 2.2 MG/DL (1.5-2.4); POTASSIUM 4.4 MMOL/L (3.5-5.1); SODIUM 137 MMOL/L (135-145); TOTAL CARBON DIOXIDE 19.8 MMOL/L (24-32); TOTAL PROTEIN 5.4 G/DL (6.4-8.2); eGFR > 90 ML/MIN
[2021-12-02] MEDS: K and/or MAG REPLACEMENT MC SCH ×2 (08:00→20:00)
[2021-12-02] MEDS: normal saline 1000ml 1,000 ML IV SCH ×3 (08:39→21:32)
[2021-12-02] MEDS: dexamethasone inj 6 MG in dextrose 5%-water 100 ML IV SCH ×2 (08:39→21:32)
[2021-12-02] MEDS: levoTHYROXINE 75mcg tablet PO SCH (08:41)
[2021-12-02] MEDS: gabapentin 100mg capsule PO SCH ×3 (08:41→21:31)
[2021-12-02] MEDS: clopidogrel 75mg tablet PO SCH (08:41)
[2021-12-02] MEDS: lisinopril 10 MG tablet PO SCH (08:41)
[2021-12-02] MEDS: ezetimibe 10mg tablet PO SCH (08:41)
[2021-12-02] MEDS: pioglitazone 15mg tablet PO SCH (08:42)
[2021-12-02] MEDS: DAPAGLIFLOZIN 10MG TABLET PO SCH (08:42)
[2021-12-02] MEDS: docusate sod 100mg capsule PO SCH ×2 (08:42→21:31)
[2021-12-02] MEDS: enoxaparin 40mg/0.4ml syringe SUBCUT SCH ×2 (08:43→21:31)
[2021-12-02] MEDS: insulin Lispro (HumaLOG) vial - multi-dose SQ SCH ×3 (08:52→23:00)
[2021-12-02] MEDS: REMDESIVIR INJ 100 MG in normal saline 100ml IV soln 100 ML IV SCH (10:30)
[2021-12-02 11:00] VITALS: BP 127/63
--- NOTE | 2021-12-02 18:51 | NUR ---
gave report to mariia hawthorne
[2021-12-02 19:00] VITALS: BP 105/64
[2021-12-02] MEDS: tizanidine 4mg tablet PO SCH (21:31)
[2021-12-02] MEDS: traZODone 50mg tablet PO SCH (21:31)
[2021-12-02 22:40] VITALS: BP 107/62
[2021-12-02] MEDS: insulin glargine (Lantus) pen - multi-dose SQ SCH (23:01)
[2021-12-03] MEDS: ALBUTEROL INHALER 1 PUFF/90 MCG INHALER IH SCH ×4 (02:00→19:54)
[2021-12-03 06:00] VITALS: BP 103/62
[2021-12-03] MEDS: normal saline 1000ml 1,000 ML IV SCH ×2 (06:40→16:40)
[2021-12-03 07:36] LABS: BASOPHILS % (AUTO) 0.1 % (0-1); EOSINOPHILS % (AUTO) 0 % (0-6); HEMATOCRIT 41.6 % (42.0-52.0); HEMOGLOBIN 14.1 g/dl (14.0-17.9); LYMPHOCYTES % (AUTO) 10.6 % (21-51); MEAN CORPUSCULAR HEMOGLOBIN 29.4 PG (27.0-31.0); MEAN CORPUSCULAR HGB CONC 33.8 g/dL (33.0-36.5); MEAN PLATELET VOLUME 7.9 FL (7.4-10.4); MONOCYTES # (AUTO) 0.5 X10'3 (0-0.9); MONOCYTES % (AUTO) 4.9 % (2-12); NEUTROPHILS # (AUTO) 7.9 X10'3 (1.8-7.7); NEUTROPHILS % (AUTO) 84.4 % (42-75); PLATELET COUNT 338 X10'3 (140-440); RED BLOOD COUNT 4.78 X10'6 (4.70-6.10); RED CELL DISTRIBUTION WIDTH 14.4 % (11.5-14.5); WHITE BLOOD COUNT 9.4 X10'3 (4.5-11.0)
[2021-12-03] MEDS: dexamethasone inj 6 MG in dextrose 5%-water 100 ML IV SCH ×2 (07:37→20:11)
[2021-12-03] MEDS: DAPAGLIFLOZIN 10MG TABLET PO SCH (07:41)
[2021-12-03] MEDS: ezetimibe 10mg tablet PO SCH (07:41)
[2021-12-03] MEDS: levoTHYROXINE 75mcg tablet PO SCH (07:41)
[2021-12-03] MEDS: docusate sod 100mg capsule PO SCH ×2 (07:42→20:11)
[2021-12-03] MEDS: gabapentin 100mg capsule PO SCH ×3 (07:42→20:11)
[2021-12-03] MEDS: clopidogrel 75mg tablet PO SCH (07:42)
[2021-12-03] MEDS: pioglitazone 15mg tablet PO SCH (07:42)
[2021-12-03] MEDS: enoxaparin 40mg/0.4ml syringe SUBCUT SCH ×2 (07:44→20:11)
[2021-12-03] MEDS: lisinopril 10 MG tablet PO SCH (08:00)
[2021-12-03] MEDS: K and/or MAG REPLACEMENT MC SCH ×2 (08:00→19:09)
[2021-12-03 08:01] LABS: ALANINE AMINOTRANSFERASE 38 U/L (12-78); ALBUMIN 2.2 G/DL (3.4-5.0); ALBUMIN/GLOBULIN RATIO 0.6 (1.1-1.5); ALKALINE PHOSPHATASE 48 IU/L (46-116); ANION GAP 10 (8-16); ASPARTATE AMINO TRANSFERASE 25 U/L (10-37); BILIRUBIN,TOTAL 0.4 MG/DL (0.1-1.0); BLOOD UREA NITROGEN 27 MG/DL (7-18); BUN/CREATININE RATIO 45.8 (5.4-32.0); C-REACTIVE PROTEIN 0.54 MG/DL (0.0-0.5); CALCIUM 7.8 MG/DL (8.5-10.1); CHLORIDE 105 MMOL/L (99-107); CREATININE 0.59 MG/DL (0.60-1.10); GLUCOSE 165 MG/DL (70-104); LACTATE DEHYDROGENASE 180 U/L (85-227); MAGNESIUM 2.1 MG/DL (1.5-2.4); POTASSIUM 4.2 MMOL/L (3.5-5.1); SODIUM 136 MMOL/L (135-145); TOTAL CARBON DIOXIDE 20.6 MMOL/L (24-32); TOTAL PROTEIN 5.6 G/DL (6.4-8.2); eGFR > 90 ML/MIN
[2021-12-03 08:33] LABS: D-DIMER 0.33 MG/L FEU (0-0.50)
[2021-12-03 10:00] VITALS: BP 96/50
[2021-12-03] MEDS: REMDESIVIR INJ 100 MG in normal saline 100ml IV soln 100 ML IV SCH (10:05)
[2021-12-03] MEDS: acetaminophen 325mg tablet PO PRN ×2 (12:10→20:48)
[2021-12-03 14:00] VITALS: BP 93/53
--- NOTE | 2021-12-03 14:49 | NUR ---
Initial: Pt admit DX COVID-19 pneumonitis, T2DM, hypothyroidism, and situational depression per EMR. Pt PO fluctuates w/ 100% breakfast this AM however overall ~46% avg heart healthy/carb controlled meals partially meeting estimated needs. Pt reports SOB despite decreasing oxygen needs per MD note now on 3L NC per EMR. LBM 11/29 receiving routine colace and PRN MoM this AM per EMR. Constipation and SOB likely impacting overall PO trends. Will monitor further PO intake trends given recent 100% this AM for further nutrition intervention needs this admit. Rec: 1. continue carb controlled/heart healthy diet per MD; encourage PO 2. monitor for ONS needs pending further PO trends 3. routine bowel care; 4 days constipation 4. scaled wt this admit; subsequent weekly wts Addendum: 12/03/21 at [address] Amended: Links added.
[2021-12-03] MEDS: insulin Lispro (HumaLOG) vial - multi-dose SQ SCH ×2 (15:25→20:21)
[2021-12-03 18:00] VITALS: BP 106/64
--- NOTE | 2021-12-03 18:23 | NUR ---
Problems reprioritized. Patient report given, questions answered & plan of care reviewed with BENNIE Stanton.
[2021-12-03] MEDS: tizanidine 4mg tablet PO SCH (20:11)
[2021-12-03] MEDS: traZODone 50mg tablet PO SCH (20:11)
[2021-12-03] MEDS: insulin glargine (Lantus) pen - multi-dose SQ SCH (21:00)
[2021-12-03 22:00] VITALS: BP 91/53
[2021-12-04] MEDS: ALBUTEROL INHALER 1 PUFF/90 MCG INHALER IH SCH (03:07)
[2021-12-04] MEDS: normal saline 1000ml 1,000 ML IV SCH (03:13)
[2021-12-04 06:45] VITALS: BP 129/63
[2021-12-04 07:00] LABS: BASOPHILS % (AUTO) 0.1 % (0-1); EOSINOPHILS % (AUTO) 0.1 % (0-6); HEMATOCRIT 39.2 % (42.0-52.0); HEMOGLOBIN 13.1 g/dl (14.0-17.9); LYMPHOCYTES # (AUTO) 1.1 X10'3 (1.1-4.8); MEAN CORPUSCULAR HEMOGLOBIN 29.3 PG (27.0-31.0); MEAN CORPUSCULAR HGB CONC 33.5 g/dL (33.0-36.5); MEAN CORPUSCULAR VOLUME 87.6 FL (78-98); MEAN PLATELET VOLUME 8.2 FL (7.4-10.4); MONOCYTES # (AUTO) 0.4 X10'3 (0-0.9); MONOCYTES % (AUTO) 5.4 % (2-12); NEUTROPHILS # (AUTO) 6.8 X10'3 (1.8-7.7); NEUTROPHILS % (AUTO) 81.4 % (42-75); PLATELET COUNT 302 X10'3 (140-440); RED BLOOD COUNT 4.48 X10'6 (4.70-6.10); WHITE BLOOD COUNT 8.3 X10'3 (4.5-11.0)
[2021-12-04 07:11] VITALS: BP_SYST 128
[2021-12-04] MEDS: ezetimibe 10mg tablet PO SCH (07:11)
[2021-12-04] MEDS: DAPAGLIFLOZIN 10MG TABLET PO SCH (07:11)
[2021-12-04] MEDS: gabapentin 100mg capsule PO SCH (07:11)
[2021-12-04] MEDS: lisinopril 10 MG tablet PO SCH (07:11)
[2021-12-04] MEDS: clopidogrel 75mg tablet PO SCH (07:11)
[2021-12-04] MEDS: docusate sod 100mg capsule PO SCH (07:11)
[2021-12-04] MEDS: levoTHYROXINE 75mcg tablet PO SCH (07:11)
[2021-12-04] MEDS: pioglitazone 15mg tablet PO SCH (07:11)
[2021-12-04] MEDS: enoxaparin 40mg/0.4ml syringe SUBCUT SCH (07:12)
[2021-12-04] MEDS: dexamethasone inj 6 MG in dextrose 5%-water 100 ML IV SCH (07:12)
[2021-12-04 07:17] LABS: D-DIMER 0.21 MG/L FEU (0-0.50)
[2021-12-04 07:21] LABS: ALANINE AMINOTRANSFERASE 40 U/L (12-78); ALBUMIN 2.1 G/DL (3.4-5.0); ALBUMIN/GLOBULIN RATIO 0.7 (1.1-1.5); ALKALINE PHOSPHATASE 46 IU/L (46-116); ANION GAP 6 (8-16); ASPARTATE AMINO TRANSFERASE 23 U/L (10-37); BILIRUBIN,TOTAL 0.3 MG/DL (0.1-1.0); BLOOD UREA NITROGEN 27 MG/DL (7-18); BUN/CREATININE RATIO 42.9 (5.4-32.0); C-REACTIVE PROTEIN 0.38 MG/DL (0.0-0.5); CALCIUM 7.7 MG/DL (8.5-10.1); CHLORIDE 106 MMOL/L (99-107); CREATININE 0.63 MG/DL (0.60-1.10); GLUCOSE 133 MG/DL (70-104); LACTATE DEHYDROGENASE 176 U/L (85-227); POTASSIUM 4.1 MMOL/L (3.5-5.1); SODIUM 137 MMOL/L (135-145); TOTAL CARBON DIOXIDE 24.9 MMOL/L (24-32); TOTAL PROTEIN 5.3 G/DL (6.4-8.2); eGFR > 90 ML/MIN
[2021-12-04] MEDS: K and/or MAG REPLACEMENT MC SCH (08:00)
[2021-12-04] MEDS: REMDESIVIR INJ 100 MG in normal saline 100ml IV soln 100 ML IV SCH (08:49)
[2021-12-04] MEDS: insulin Lispro (HumaLOG) vial - multi-dose SQ SCH (08:51)
[2021-12-04] MEDS ORDERED: ALBU6.7H9 IH (11:18)
[2021-12-04] MEDS ORDERED: PRED20TA PO (11:18)
--- NOTE | 2021-12-04 12:15 | NUR ---
PT DISCHARGED IN STABLE CONDITION. LEFT FACILITY IN PRIVATE VEHICLE WITH SPOUSE. IV DC CANULA INTACT. ALL BELONGINGS IN HAND. FOLLOW UP INSTRUCTIONS GIVEN, ALL QUESTIONS ANSWERED. Addendum: 12/04/21 at 1253 by Ingrid Malin RN Amended: Links added.
== END 2021-12-04 12:14 | disposition home or self-care (01) | DRG 177 ==
LOC: ER 10:02 → ED HOLD 12:47 → EDBEDREQ 11-30 19:00 → ORTHO 4S 11-30 20:21
PROVIDERS: ADMIT Family Medicine; ATTEND Family Medicine
PROC: B32T1ZZ Computerized Tomography (CT Scan) of Left Pulmonary Artery using Low Osmolar Contrast (ICD-10-PCS; principal; 2021-11-29)
PROC: B3201ZZ Computerized Tomography (CT Scan) of Thoracic Aorta using Low Osmolar Contrast (ICD-10-PCS; 2021-11-29)
PROC: B32S1ZZ Computerized Tomography (CT Scan) of Right Pulmonary Artery using Low Osmolar Contrast (ICD-10-PCS; 2021-11-29)
PROC: XW033E5 Introduction of Remdesivir Anti-infective into Peripheral Vein, Percutaneous Approach, New Technology Group 5 (ICD-10-PCS; 2021-11-29)
DX: U07.1 COVID-19 (principal); J96.01 Acute respiratory failure with hypoxia; J12.82 Pneumonia due to coronavirus disease 2019; E87.1 Hypo-osmolality and hyponatremia; E87.2 Acidosis; E03.9 Hypothyroidism, unspecified; E78.5 Hyperlipidemia, unspecified; F43.21 Adjustment disorder with depressed mood; R79.89 Other specified abnormal findings of blood chemistry; E11.9 Type 2 diabetes mellitus without complications; I25.10 Atherosclerotic heart disease of native coronary artery without angina pectoris; I10 Essential (primary) hypertension; Z95.5 Presence of coronary angioplasty implant and graft; Z79.899 Other long term (current) drug therapy; Z79.02 Long term (current) use of antithrombotics/antiplatelets
CPT/HCPCS: 36415; 70450; 71045; 71275; 80053; 80061; 81001; 82728; 82948; 83036; 83605; 83615; 83735; 84145; 84443; 85025; 85379; 86140; 87040; 87081; 87635; 93005; 93308; 94640; 94760; 97110; 97112; 97116; 97161; 97530; 99291; C9803; G0378; J1100; J1650; J1815; J2405; J3490; J7030; J7060; Q9967